=== PATIENT | female | born 1960 | race Caucasian/White ===

== ENCOUNTER 2017-05-12 23:55 | Emergency (ER) | payer OTHER, MEDICARE ==
[2017-05-13] MEDS ORDERED: RX INFO: IV CONTRAST WAS GIVEN 1 EACH MISC MISCELLANE PRN (00:01)
[2017-05-13] MEDS ORDERED: ceFAZolin 1,000 MG in DEXTROSE/WATER 1 50ML.BAG IVPB STA (00:05)
[2017-05-13] MEDS ORDERED: DIPH,PERTUS(ACELL)TETVAC-LF 0.5 ML VIAL IM ONE (00:05)
[2017-05-13] MEDS ORDERED: MORPHINE SULFATE 4 MG/ML SYRINGE IV STA (00:06)
[2017-05-13 00:07] VITALS: BP 139/80; PULSE 95; RESP 28; TEMP 96.8
[2017-05-13 00:10] LABS: Glucose,Whole Blood 112 mg/dL (75-99)
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
[2017-05-13 00:37] LABS: Basophils % (A) 0 %; CH 32.9; CHCM 34.1; Eosinophils # (A) 0.2 k/uL (0-0.7); Eosinophils % (A) 2 %; HDW 2.25; HGB 14.3 gm/dL (11.4-16.0); Luc # (Auto) 0.32; Luc % (Auto) 4; Lymphocytes % (A) 38 %; MCH 35.6 pg (25.0-35.0); MCHC 36.7 g/dL (31.0-37.0); MCV 96.8 fL (80.0-100.0); Mean Platelet Volume 6.4; Monocytes # (A) 0.5 k/uL (0-1.0); Monocytes % (A) 6 %; Neutrophils % (A) 50 %; RBC 4.03 m/uL (3.80-5.40); WBC (Perox) 8.74
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
--- NOTE | 2017-05-13 00:44 | XR ---
Exam: FILM PELVIS INDICATION: Trauma COMPARISON: none FINDINGS: Single AP view of the pelvis is obtained. No fracture or malalignment. Joint spaces are maintained. No arthritic changes identified. Sacroiliac joints and pubic sepsis are intact.. Soft tissues are unremarkable by radiograph exam. IMPRESSION: No fracture or malalignment. Unremarkable exam.
[2017-05-13 00:46] LABS: Anion Gap 13 mmol/L; Calcium 9.4 mg/dL (8.4-10.2); Carbon Dioxide 21 mmol/L (22-30); Chloride 107 mmol/L (98-107); Glucose 95 mg/dL (74-99); Non-African American GFR(MDRD) 58 (>60 ml/min/1.73 sqM); Sodium 141 mmol/L (137-145); Total Bilirubin 0.5 mg/dL (0.2-1.3); Total Protein 6.4 g/dL (6.3-8.2)
[2017-05-13 00:49] LABS: ALT 18 U/L (9-52); AST 28 U/L (14-36); Alcohol 103 mg/dL; Alkaline Phosphatase 46 U/L (38-126); Blood Urea Nitrogen 13 mg/dL (7-17); Potassium 4.1 mmol/L (3.5-5.1)
[2017-05-13] MEDS ORDERED: HYDROmorphone 1 MG/ML 1 ML SYRINGE IVP STA ×4 (00:50→01:32)
[2017-05-13 00:51] LABS: Prothrombin Time 10.5 sec (9.0-12.0)
[2017-05-13 00:56] LABS: Partial Thromboplastin Time 20.7 sec (22.0-30.0)
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
--- NOTE | 2017-05-13 01:07 | CT ---
Exam: CT CHEST With Contrast INDICATION: Trauma TECHNIQUE: Multiple, contiguous 5mm axial cuts of the chest are obtained following the administration of IV contrast. High resolution axial images as well as sagittal and coronal reformatted images are available. This CT exam was performed using one or more of the following dose reduction techniques: automated exposure control, adjustment of the mA and/or kV according to patient size, and/or use of iterative reconstruction technique. CTDI for chest abdomen pelvis 10.6, DLP 719.4 COMPARISON:chest radiograph 05/13/17 FINDINGS: No pneumothorax or effusion or acute infiltrates. Centrilobular emphysematous changes upper lung chatman. No acute osseous normality. Mild endplate degenerative osteophyte formation at a few levels of the lower thoracic spine not unexpected for age. Aorta normal. No dissection. Heart size normal. No pericardial effusion. No adenopathy. 1.8 x 1.1 cm low-density nodule left lobe of the thyroid gland. IMPRESSION: 1. No acute traumatic injury to the chest. 2. Emphysematous changes of the lungs. No infiltrates or effusion or pneumothorax. 3. 1.8 x 1.1 cm low-density nodule left lobe of thyroid gland. EXAM: CT ABDOMEN PELVIS WITH CONTRAST INDICATION: Trauma TECHNIQUE: Multiple, contiguous 5 mm axial cuts of the abdomen and pelvis are obtained from the lung bases to the ischial tuberosities. Intravenous contrast administered. Sagittal and coronal reformatted images are available. This CT exam was performed using one or more of the following dose reduction techniques: automated exposure control, adjustment of the mA and/or kV according to patient size, and/or use of iterative reconstruction technique. CTDI for chest abdomen pelvis 10.6, DLP 719.4 COMPARISON: None FINDINGS: Lung bases are clear. Liver: liver is unremarkable. Spleen: spleen is unremarkable. Pancreas: pancreas is unremarkable. Gallbladder: Gallbladder is unremarkable by CT exam. Adrenal glands: adrenal glands are unremarkable. Kidneys: kidneys are unremarkable. No urinary tract stones or hydronephrosis or perinephric inflammatory changes. GI tract: No bowel obstruction. No free fluid or free air or acute mesenteric inflammatory changes. Appendix: Appendix is not identified however no secondary signs for acute appendicitis is seen. Urinary bladder: urinary bladder is unremarkable. Abdominal aorta: Abdominal aorta normal caliber. Retroperitoneum. No adenopathy. Osseous structures: No acute osseous abnormality. No focal ovarian lesion. IMPRESSION: 1. No solid organ injury. No acute intra-abdominal process or evidence for acute traumatic injury.. 2. No free fluid or free air or bowel obstruction. 3. No acute osseous abnormality.
--- NOTE | 2017-05-13 01:53 | XR ---
ADDENDUM - Added by Jeremy Stallings M.D. on 05/13/2017 1:55 AM (-07:00) Addendum: Please see right tibia-fibula exam report for right fibular neck fracture and distal tibial shaft fracture. Exam: FILM RIGHT FEMUR INDICATION: Trauma COMPARISON: none FINDINGS: 5 views of the right femur are obtained. No fracture or malalignment. Bone mineralization appears within normal limits. Soft tissues are unremarkable radiographically. There is contrast seen in the urinary bladder from CT exam performed prior to this study. No knee joint effusion. IMPRESSION: No fracture or malalignment. Unremarkable exam.
--- NOTE | 2017-05-13 01:55 | XR ---
Exam: FILM RIGHT TIB/FIB INDICATION: Trauma COMPARISON: none FINDINGS: 4 views of the right tibia and fibula are obtained. Acute oblique fracture of the distal tibial shaft with cortical shaft width lateral and posterior displacement without significant angulation. There is an oblique fracture of the fibular neck without significant displacement. Knee joint and mortise joint alignment are maintained. Soft tissues are unremarkable radiographically. IMPRESSION: Acute oblique fracture of the distal tibial shaft with cortical shaft width lateral and posterior displacement without significant angulation. There is an oblique fracture of the fibular neck without significant displacement. Knee joint and mortise joint alignment are maintained.
--- NOTE | 2017-05-13 02:16 | XR ---
EXAM: XR Right Hand Complete, 3 or More Views CLINICAL HISTORY: trauma TECHNIQUE: Frontal, lateral and oblique views of the right hand. COMPARISON: No relevant prior studies available. FINDINGS: Bones/joints: Unremarkable. No acute fracture. No dislocation. Soft tissues: Unremarkable. No radiopaque foreign body. IMPRESSION: No fracture.
== END 2017-05-13 01:40 | disposition short-term general hospital (02) ==
LOC: EC 23:55
DX: S82.231A Displaced oblique fracture of shaft of right tibia, initial encounter for closed fracture (principal); S82.431A Displaced oblique fracture of shaft of right fibula, initial encounter for closed fracture; S82.861A Displaced Maisonneuve's fracture of right leg, initial encounter for closed fracture; S00.81XA Abrasion of other part of head, initial encounter; S60.511A Abrasion of right hand, initial encounter; F10.129 Alcohol abuse with intoxication, unspecified; R00.0 Tachycardia, unspecified; V48.6XXA Car passenger injured in noncollision transport accident in traffic accident, initial encounter; Y92.410 Unspecified street and highway as the place of occurrence of the external cause
CPT/HCPCS: 36415; 93005; 86900; 86901; 80053; 83605; 84484; 85025; 85610; 85730; 86850; 80320; 71010; 72170; 73552; 73130; 73590; 72125; 70450; 71260; 74177; 90715; 99291; 96365; 96375 ×2; 96376; 29515; 90471; J2270; J1170; Q9967; J0690

== ENCOUNTER → 2017-06-01 | Outpatient (CLI) | payer MEDICARE ==
--- NOTE | 2017-06-01 17:38 | US ---
EXAMINATION TYPE: US thyroid st tissue head/neck DATE OF EXAM: 06/01/2017 COMPARISON: CT CLINICAL HISTORY: E04.1 NODULE. Left thyroid nodule seen on recent CT GLAND SIZE: Right Lobe: 5.3 x 1.3 x 1.2 cm Overall Parenchyma: homogenous Left Lobe: 5.1 x 1.9 x 1.4 cm Overall Parenchyma: homogeneous Isthmus Thickness: 0.2 cm NODULES RIGHT: # of nodules measured on right: 1 1. 0.4 X 0.3 x 0.4 cm hypoechoic mixed nodule at the mid pole with well-defined margins. This nodul e is wider than tall and shows intranodular vascularity. Prior size: no previous LEFT: # of nodules measured on left: 1 1. 2.5 X 1.7 x 1.6 cm hypoechoic mixed nodule at the lower pole with well-defined margins. This nod ule is wider than tall and shows intranodular vascularity. Prior size: no previous ISTHMUS: # of nodules measured in the isthmus: 0 Bilateral neck scanned, no evidence of lymphadenopathy. IMPRESSION: Left thyroid nodule measuring 2.5 x 1.7 x 1.6 cm can be further characterized with fine needle aspira tion tissue sampling.
== END | disposition home or self-care (01) ==
LOC: RADUSWWP 16:51
PROVIDERS: ATTEND Family Medicine
DX: E04.1 Nontoxic single thyroid nodule (principal)
CPT/HCPCS: 76536

== ENCOUNTER 2018-05-29 12:19 | Day surgery (SDC) | payer MEDICARE ==
[2018-05-29 12:45] VITALS: RESP 16; TEMP 97.7
[2018-05-29] MEDS ORDERED: ALPRAZolam 0.5 MG TAB PO STA (12:48)
[2018-05-29 14:05] VITALS: BP 122/67; PULSE 76
--- NOTE | 2018-05-29 15:15 | US ---
EXAMINATION TYPE: US FNA thyroid DATE OF EXAM: 05/29/2018 COMPARISON: NONE HISTORY: Thyroid nodule. Maximal barrier technique was utilized. After informed consent, skin overlying the lesion was locali zed with ultrasound and the overlying skin prepped and draped. Ultrasound was utilized using sterile technique. Lidocaine was used for local anesthesia. 6 passes with a 25-gauge needle were made into th e left lower pole nodule and aspirated specimen was submitted to cytology. Following the procedure h emostasis achieved. No immediate complication. The patient discharged in stable condition. IMPRESSION: STATUS POST ULTRASOUND GUIDED FINE NEEDLE ASPIRATION OF THYROID NODULE, PATHOLOGY IS PEND ING. THIS PROCEDURE WAS PERFORMED BY THE UNDERSIGNED.
== END 2018-05-29 14:07 | disposition home or self-care (01) ==
LOC: RADPROMAIN 12:19
PROVIDERS: ATTEND Family Medicine
DX: E04.1 Nontoxic single thyroid nodule (principal)
CPT/HCPCS: 10022; 76942; 88173; 88305

== ENCOUNTER → 2018-12-21 | Outpatient (CLI) | payer MEDICARE ==
--- NOTE | 2018-12-21 15:45 | US ---
EXAMINATION TYPE: US thyroid st tissue head/neck DATE OF EXAM: 12/21/2018 COMPARISON: Prior thyroid ultrasound June 01, 2017 CLINICAL HISTORY: E04.1 thyroid nodule. GLAND SIZE: Right Lobe: 4.9 x 1.3 x 1.6 cm Overall Parenchyma: homogenous Left Lobe: 5.0 x 1.8 x 1.6 cm Overall Parenchyma: homogeneous Isthmus Thickness: 0.3 cm NODULES RIGHT: # of nodules measured on right: 1 1. 0.4 X 0.3 x 0.4 cm hypoechoic solid nodule at the mid pole with well-defined margins. This nodu le is wider than tall and shows no intranodular vascularity. Prior size: 0.4 X 0.3 x 0.4 cm LEFT: # of nodules measured on left: 1 1. 2.2 X 1.4 x 1.3 cm hypoechoic solid nodule at the lower pole with well-defined margins. This no dule is wider than tall and shows intranodular vascularity. Prior size: 2.5 X 1.7 x 1.6cm ISTHMUS: # of nodules measured in the isthmus: 0 Bilateral neck scanned, no evidence of lymphadenopathy. Homogeneous thyroid gland is normal in size on current study with stable 4 mm right thyroid nodule in feriorly stable 2.2 cm hypoechoic solid left-sided thyroid nodule which has been biopsied in the past . No new nodules are evident. IMPRESSION: As above, overall stable findings noted.
== END ==
LOC: RADUSWWP 14:56
PROVIDERS: ATTEND Surgery
DX: E04.1 Nontoxic single thyroid nodule (principal)
CPT/HCPCS: 76536

== ENCOUNTER → 2019-01-18 | Outpatient (CLI) | payer MEDICARE ==
--- NOTE | 2019-01-21 13:17 | MM ---
Reason for exam: screening (asymptomatic). Last mammogram was performed 2 years and 7 months ago. History: Patient is postmenopausal. Family history of premenopausal breast cancer in sister at age 32. Took estrogen for 13 years beginning at age 36. Physical Findings: A clinical breast exam by your physician is recommended on an annual basis and results should be correlated with mammographic findings. MG 3D Screening Mammo W/Cad Bilateral CC and MLO view(s) were taken. Prior study comparison: June 20, 2016, bilateral MG 3d screening mammo w/cad. March 27, 2012, CAD bilateral diagnostic mammogram. The breast tissue is heterogeneously dense. This may lower the sensitivity of mammography. No significant changes when compared with prior studies. ASSESSMENT: Benign, BI-RAD 2 RECOMMENDATION: Routine screening mammogram of both breasts in 1 year.
== END ==
LOC: RADMAMWWP 15:04
PROVIDERS: ATTEND Family Medicine
DX: Z12.31 Encounter for screening mammogram for malignant neoplasm of breast (principal)
CPT/HCPCS: 77063; 77067

== ENCOUNTER → 2021-01-14 | Outpatient (CLI) | payer OTHER ==
--- NOTE | 2021-01-15 08:03 | US ---
EXAMINATION TYPE: US thyroid st tissue head/neck DATE OF EXAM: 01/14/2021 COMPARISON: US 2019, 05/29/2018 CLINICAL HISTORY: E04.1 THYROID NODULE. Thyroid nodule, history of FNA, patient on thyroid meds GLAND SIZE: Right Lobe: 5.3 x 1.2 x 1.4 cm Overall Parenchyma: homogenous Left Lobe: 4.9 x 1.7 x 1.4 cm Overall Parenchyma: homogeneous Isthmus Thickness: 0.2 cm NODULES RIGHT: # of nodules measured on right: 1 1. 0.4 X 0.3 x 0.4 cm lateral mid pole cystic or almost completely cystic, hypoechoic nodule, which is wider than tall, with smooth margins, without echogenic foci. Prior size: 0.4 x 0.2 x 0.3 cm LEFT: # of nodules measured on left: 1 1. 2.3 X 1.3 x 1.4 cm inferior pole solid or almost completely solid, hypoechoic nodule, which is w ider than tall, with smooth margins, without echogenic foci. May have increased vascularity. Prior size: 2.3 x 1.4 x 1.3 cm . This appears to have been biopsied 2018. ISTHMUS: # of nodules measured in the isthmus: 0 Bilateral neck scanned, no evidence of lymphadenopathy. IMPRESSION: Moderately suspicious nodule left lobe thyroid. Continued monitoring is recommended. 2017 ACR TI-RADS LEVEL: TR-RADS 4 - Moderately Suspicious: Follow if > 1 cm, FNA if > 1.5 cm *Highest TI-RADS level nodule reported
== END ==
LOC: RADUSWWP 16:15
PROVIDERS: ATTEND Surgery
DX: E04.1 Nontoxic single thyroid nodule (principal)
CPT/HCPCS: 76536

== ENCOUNTER → 2022-01-31 | Outpatient (CLI) | payer BC ==
--- NOTE | 2022-02-01 08:23 | US ---
EXAMINATION TYPE: US thyroid st tissue head/neck DATE OF EXAM: 01/31/2022 COMPARISON: 01/14/21 CLINICAL HISTORY: 61-year-old female E04.1 THYROID NODULE. Thyroid nodule; hx left thyroid biopsy TECHNIQUE: Multiple sonographic images of the thyroid gland are obtained. FINDINGS: GLAND SIZE: Right Lobe: 5.0 x 1.2 x 1.2 cm Overall Parenchyma: homogenous Left Lobe: 4.8 x 1.5 x 1.3 cm Overall Parenchyma: homogeneous Isthmus Thickness: 0.28 cm NODULES RIGHT: # of nodules measured on right: 1 1. 0.3 X 0.3 x 0.3 cm, lower mid, , hypoechoic nodule, which is wider than tall, with smooth margin s, without echogenic foci. Prior size: 0.4 x 0.3 x 0.4 cm LEFT: # of nodules measured on left: 1 1. 2.4 X 1.7 x 1.6 cm, mid lateral, solid or almost completely solid, hypoechoic TR4 nodule, which is wider than tall, with smooth margins, without echogenic foci. Prior size: 2.3 x 1.3 x 1.4 cm ISTHMUS: # of nodules measured in the isthmus: 0 Bilateral neck scanned, no evidence of lymphadenopathy. IMPRESSION: 1. Borderline hepatomegaly. 2. Solid TR4 nodule at the left lower pole is stable to minimally larger at 2.4 x 1.7 cm (versus 2.3 x 1.4 cm, previously). Continue to follow.
== END | disposition home or self-care (01) ==
LOC: RADUSWWP 16:49
PROVIDERS: ATTEND Surgery
DX: E04.1 Nontoxic single thyroid nodule (principal); R16.0 Hepatomegaly, not elsewhere classified
CPT/HCPCS: 76536

== ENCOUNTER 2022-02-10 08:40 | Day surgery (SDC) | payer BC ==
[2022-02-10] MEDS ORDERED: ALPRAZolam 0.5 MG TAB PO PRN (08:57)
[2022-02-10 09:03] VITALS: TEMP 97.8
--- NOTE | 2022-02-10 10:39 | US ---
ULTRASOUND GUIDED FNA THYROID BIOPSY: CLINICAL HISTORY: Left thyroid nodule FINDINGS: The procedure was explained to the patient. The risks, complications, benefits and alternatives were discussed and any questions were answered. Informed consent was obtained. Patient was placed supin e on the ultrasound table and prepped and draped in the usual sterile fashion. Utilizing a 25 gauge needle, five passes were made into the requested left thyroid nodule. Patient was stable throughout the procedure. Pathology is pending. All elements of maximal barrier technique were utilized. IMPRESSION: 1. Successful ultrasound guided FNA thyroid biopsy.
[2022-02-10 10:59] VITALS: BP 118/69; PULSE 89; RESP 16
== END 2022-02-10 10:28 | disposition home or self-care (01) ==
LOC: RADPROMAIN 08:40
PROVIDERS: ATTEND Surgery
DX: E04.1 Nontoxic single thyroid nodule (principal)
CPT/HCPCS: 10005; 88173; 88305

== ENCOUNTER → 2022-04-01 | Outpatient (CLI) | payer BC ==
--- NOTE | 2022-04-01 15:19 | CT ---
EXAMINATION TYPE: CT sinus wo con DATE OF EXAM: 04/01/2022 COMPARISON: None HISTORY: chronic sinusitis CT DLP: 500.10 mGycm. Automated Exposure Control for Dose Reduction was Utilized. TECHNIQUE: CT scan of the sinuses is performed without contrast, axial images are obtained, coronal r eformatted images are also reviewed. FINDINGS: The paranasal sinuses including the frontal, ethmoid, sphenoid, and maxillary sinuses bila terally are well-aerated without abnormal opacification. 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 The ostiomeatal complex is patent bilaterally on the coronal images. Visualized portion of mastoid air cells and middle ear cavities show no abnormal opacification. The globes are intact bilaterally. IMPRESSION: The sinuses are clear and the ostiomeatal complex is patent bilaterally.
== END | disposition home or self-care (01) ==
LOC: RADCTMAIN 14:33
PROVIDERS: ATTEND Otolaryngology
DX: J32.9 Chronic sinusitis, unspecified (principal)
CPT/HCPCS: 70486

== ENCOUNTER → 2023-02-23 | Outpatient (CLI) | payer MEDICARE ==
--- NOTE | 2023-02-24 08:06 | MM ---
Reason for Exam: Screening (asymptomatic). Last mammogram was performed 4 year(s) and 1 month(s) ago. Patient History: Menarche at age 13. First Full-Term at age 22. Left ovary removed at age 36. Right ovary removed at age 44. Hysterectomy at age 36. Postmenopausal. Estrogen for 13 years from age 36 until age 49. Sister had breast cancer, age 32. Risk Values: Marguerite 5 year model risk: 2.9%. NCI Lifetime model risk: 12.8%. Prior Study Comparison: 03/27/2012 Bilateral Diagnostic Mammogram, [facility]. 06/20/2016 Bilateral Screening Mammogram, [facility]. 01/18/2019 Bilateral Screening Mammogram, [facility]. Tissue Density: The breast tissue is heterogeneously dense. This may lower the sensitivity of mammography. Findings: Analyzed By CAD. There are a few scattered tiny benign-appearing round calcifications bilaterally redemonstrated. There is no suspicious new group of microcalcifications or new suspicious mass in either breast. Overall Assessment: Benign, BI-RAD 2 Management: Screening Mammogram of both breasts in 1 year. A clinical breast exam by your physician is recommended on an annual basis and results should be correlated with mammographic findings. Electronically signed and approved by: Renan Armijo M.D.
== END | disposition home or self-care (01) ==
LOC: RADMAMWWP 16:31
PROVIDERS: ATTEND Obstetrics & Gynecology
DX: Z12.31 Encounter for screening mammogram for malignant neoplasm of breast (principal); Z78.0 Asymptomatic menopausal state; Z80.3 Family history of malignant neoplasm of breast
CPT/HCPCS: 77063; 77067

== ENCOUNTER → 2023-10-02 | Outpatient (CLI) | payer MEDICARE ==
[2023-10-03 05:15] LABS: C Reactive Protein <0.30 mg/dL (0.00-0.80); Estradiol 64.8 pg/mL
== END | disposition home or self-care (01) ==
LOC: LABWHC1 13:33
PROVIDERS: ATTEND Family Medicine
DX: R53.83 Other fatigue (principal); Z79.890 Hormone replacement therapy
CPT/HCPCS: 36415; 82533; 82626; 82670; 84144; 84403; 86140

== ENCOUNTER → 2023-11-02 | Outpatient (CLI) | payer MEDICARE ==
[2023-11-02 11:55] LABS: Magnesium 1.9 mg/dL (1.5-2.4); T4, Free (Free Thyroxine) 1.4 ng/dL (0.80-1.80)
== END | disposition home or self-care (01) ==
LOC: LABWHC1 07:32
PROVIDERS: ATTEND Family Medicine
DX: M81.0 Age-related osteoporosis without current pathological fracture (principal); E63.9 Nutritional deficiency, unspecified; E07.9 Disorder of thyroid, unspecified; R41.9 Unspecified symptoms and signs involving cognitive functions and awareness; R53.83 Other fatigue
CPT/HCPCS: 36415; 82533; 82607; 83735; 84140; 84207; 84425; 84439; 84443; 84481; 84591; 86376

== ENCOUNTER → 2024-01-08 | Outpatient (CLI) | payer MEDICARE ==
[2024-01-17 22:41] LABS: Albumin, LC/MS/MS 4.2 g/dL (3.6-5.1); Testosterone, Free, LC/MS/MS 14.1 pg/mL (0.2-5.0)
== END | disposition home or self-care (01) ==
LOC: LABWHC1 10:58
PROVIDERS: ATTEND Family Medicine
DX: R79.89 Other specified abnormal findings of blood chemistry (principal); Z79.890 Hormone replacement therapy
CPT/HCPCS: 36415; 82040; 82670; 84270; 84403

== ENCOUNTER → 2024-02-26 | Outpatient (CLI) | payer MEDICARE ==
--- NOTE | 2024-02-28 14:52 | MM ---
Reason for Exam: Screening (asymptomatic). Last screening mammogram was performed 12 month(s) ago. Patient History: Menarche at age 13. First Full-Term at age 22. Left ovary removed at age 36. Right ovary removed at age 44. Hysterectomy at age 36. Postmenopausal. Estrogen for 13 years from age 36 until age 49. Sister had breast cancer, age 32. Risk Values: Marguerite 5 year model risk: 3.0%. NCI Lifetime model risk: 12.4%. Prior Study Comparison: 06/20/2016 Bilateral Screening Mammogram, [facility]. 01/18/2019 Bilateral Screening Mammogram, [facility]. 02/23/2023 Bilateral MG 3D screening mammo w/cad, [facility]. Tissue Density: The breasts are heterogeneously dense, which may obscure small masses. Findings: Analyzed By CAD. There is no suspicious group of microcalcifications or new suspicious mass in either breast. Overall Assessment: Benign, BI-RAD 2 Management: Screening Mammogram of both breasts in 1 year. . Patient should continue monthly self-breast exams. A clinical breast exam by your physician is recommended on an annual basis. This exam should not preclude additional follow-up of suspicious palpable abnormalities. Note on Marguerite scores and lifetime risk: 1. A Marguerite score greater than 3% is considered moderate risk. If this is the case, consider specialist referral to assess eligibility for a risk reducing agent. 2. If overall lifetime risk for the development of breast cancer is 20% or higher, the patient may qualify for future screening with alternating mammogram and breast MRI. Electronically signed and approved by: Cholo Hayes M.D. Radiologis
== END | disposition home or self-care (01) ==
LOC: RADMAMWWP 16:22
PROVIDERS: ATTEND Family Medicine
DX: Z12.31 Encounter for screening mammogram for malignant neoplasm of breast (principal); Z78.0 Asymptomatic menopausal state; Z80.3 Family history of malignant neoplasm of breast
CPT/HCPCS: 77063; 77067

== ENCOUNTER → 2025-03-06 | Outpatient (CLI) | payer MEDICARE ==
--- NOTE | 2025-03-06 14:15 | CTL ---
EXAMINATION TYPE: CT Low Dose Lung DATE OF EXAM ORDERED: 03/06/2025 COMPARISON: CT chest, abdomen and pelvis dated 05/13/2017 CLINICAL INDICATION: Female, 64 years old with history of Z12.2 LUNG CA SCR F17.210 CURRENT SMOKER; [facility], Current smoker, 1 ppd x 50 years, Lung cancer screening, History of Smoking/tobacco use. TECHNIQUE: Low dose computed tomography scan was performed through the chest at 1 mm thick sections a nd reconstructed images in multiple planes at 1 mm and [address] DLP: 46.[address] CTDI: 1.4 mGy Automated exposure control for dose reduction was used. CT DIAGNOSTIC QUALITY: Satisfactory EXAMINATION TYPE: CT Low Dose Lung DATE OF EXAM ORDERED: 03/06/2025 CLINICAL INDICATION: Female, 64 years old with history of Z12.2 LUNG CA SCR F17.210 CURRENT SMOKER, history of tobacco use, Lung cancer screening CT DLP: 46.[address] CTDI: 1.4 mGy Automated exposure control for dose reduction was used. Comparison: None TECHNIQUE: Low dose computed tomography scan was performed through the chest at 1 mm thick sections a nd reconstructed images in multiple planes at 1 mm and [address] DIAGNOSTIC QUALITY: Satisfactory FINDINGS: There are moderate diffuse emphysematous changes. There is a 16 - 17 mm left thyroid nodule thyroid u ltrasound is recommended to exclude malignancy. There are 2 to 3 mm right upper lobe nodules not clearly seen on the prior study. There is no airspace consolidation or abnormal interstitial density. There is no mediastinal, hilar or axillary adenopathy. There is no pleural effusion, pleural thickening or pneumothorax. No focal osseous lesions are seen. Limited scans the upper abdomen reveals no gross abnormality IMPRESSION: 1. Lung rads Category 3, likely benign. 2. New 2 to 3 mm right upper lobe nodules. Follow-up CT thorax in 3 months is recommended to confirm stability. 3. No acute cardiopulmonary disease. 4. To exclude malignancy. Moderate emphysematous changes. 5. 16 -17 mm left thyroid nodule and thyroid ultrasound is recommended [facility], , 03/06/2025 2:13 PM
== END | disposition home or self-care (01) ==
LOC: RADCTMAIN 13:28
PROVIDERS: ATTEND Family Medicine
DX: Z12.2 Encounter for screening for malignant neoplasm of respiratory organs (principal); F17.210 Nicotine dependence, cigarettes, uncomplicated; R91.8 Other nonspecific abnormal finding of lung field; E04.1 Nontoxic single thyroid nodule
CPT/HCPCS: 71271

== ENCOUNTER 2025-03-19 10:30 | Day surgery (SDC) | payer MEDICARE ==
[2025-03-19] MEDS: IV FLUID CONTINUATION 1,000 ML IV ONE (11:15)
[2025-03-19] MEDS: ONDANSETRON 4 MG/2 ML VIAL IVP STA (11:34)
[2025-03-19] MEDS: DEXAMETHASONE SOD PHOSPHATE 4 MG/ML 1 ML VIAL IVP STA (11:34)
[2025-03-19] MEDS: MIDAZOLAM 2 MG/2 ML VIAL IV ONE (11:42)
[2025-03-19] MEDS ORDERED: KETOROLAC 15 MG/ML 1 ML VIAL ONE (12:23)
[2025-03-19] MEDS ORDERED: LIDOCAINE 1% INJ 10MG/ML (20 ML MDV) ONE (12:23)
[2025-03-19] MEDS ORDERED: PHENYLEPHRINE 10 MG/ML VIAL ONE (12:23)
[2025-03-19] MEDS ORDERED: MIDAZOLAM 2 MG/2 ML VIAL ONE (12:23)
[2025-03-19] MEDS ORDERED: fentaNYL (PF) 50 MCG/ML 2 ML AMP ONE (12:23)
[2025-03-19] MEDS ORDERED: PROPOFOL 10 MG/ML 20 ML VIAL IV ONE (12:23)
[2025-03-19] MEDS: ceFAZolin 2 GM in DEXTROSE 5% IN WATER 50 ML IVPB PRN (12:27)
[2025-03-19] MEDS ORDERED: METOCLOPRAMIDE 5 MG/ML 2 ML VIAL IVP PRN (13:11)
[2025-03-19] MEDS ORDERED: ONDANSETRON 4 MG/2 ML VIAL IVP PRN (13:11)
[2025-03-19] MEDS ORDERED: HYDROmorphone 1 MG/ML 1 ML SYRINGE IVP PRN (13:11)
[2025-03-19] MEDS ORDERED: HYDROmorphone 0.5 MG/0.5 ML SYRINGE IVP PRN (13:11)
[2025-03-19] MEDS ORDERED: HYDROcodone/APAP 5-325MG 1 EACH TAB PO PRN ×2 (13:11)
--- NOTE | 2025-03-19 13:11 | P.OP ---
Date of Procedure: 03/19/25 Preoperative Diagnosis: 1. Symptomatic hardware right leg 2. Prior distal third tibia fracture status post intramedullary nail Postoperative Diagnosis: Same Procedure(s) Performed: Hardware removal deep, right leg Anesthesia: MONCHO WILKINS Surgeon: Lucas Giles Canal Equipment Maintenance Supervisor #1: Joseph Sabillon Estimated Blood Loss (ml): 10 IV fluids (ml): 200 Pathology: none sent Condition: stable Disposition: PACU Indications for Procedure: The patient is a very pleasant 64-year-old female who I recently saw in the office regarding symptomatic hardware in her right leg. The patient previously sustained a closed right distal third tibia fracture and underwent intramedullary nailing at a different facility. She went on to heal her fracture but presented to my office with symptomatic hardware from the interlocking screws proximally and distally at the nail. She requested hardware removal. On exam she was only symptomatic over the very prominent screw heads of the interlocking screws proximally and distally. She had minimal to no anterior knee pain. We discussed removing the prominent screws versus entire tibial nail removal. Her x-rays showed that the nail was countersunk and bone had overgrown the proximal aspect of the tibial nail. Both the patient and her were aware of this. My recommendation was to only remove the symptomatic screws as this was what was bothering her. The patient and her agreed. We discussed the potential risks and complications of surgery including but not limited to risk of anesthesia, superficial infection, deep infection, damage to blood vessels or nerves, delayed wound healing, continued symptoms, DVT, PE, need for further hardware removal, to satisfaction with surgery, and possibly loss of life or limb. They provided their consent to go forward with surgery. Description of Procedure: The patient was identified in preoperative holding and the correct right leg was marked with my initials. I reviewed the consent form with the patient and her . All of their questions were answered. The patient was then brought back to operating room by anesthesia. She was positioned on the OR table where general anesthetic and preoperative antibiotics were given. A tourniquet was applied to the proximal aspect of the right leg but was not used during the procedure. A bump was placed under the right leg to facilitate intraoperative imaging. The contralateral left leg was secured to the OR table with foam, a blue towel, and tape. Nonsterile drapes were applied. The right leg was then prepped and draped in the standard sterile fashion. Prior to starting surgery a timeout was performed identifying the correct patient, operative extremity, and procedure. I began by removing the proximal screw. A stab incision was made over the prominent screw head at the site of the previous scar. Dissection was bluntly performed down to the screw. With the screw head fully visualized a star escort car driver was used to completely remove the screw. Attention was then turned distally. There were 2 prominent screw heads. Stab incisions were made and dissection was carried down to both prominent screw heads which were easily removed with the appropriate sized star head screwdriver. There was still 1 distal interlocking screw which was not readily palpable. Final fluoroscopic images were taken. All 3 wounds were thoroughly irrigated and closed in layers. Half percent Marcaine was injected around the incision sites. Sterile dressings were applied. The drapes were taken down and an Fausto wrap was applied. The patient was then extubated, transferred to a gurredfield, and brought to recovery having tolerated the suture well. Joseph Sabillon PA-C was required as a skilled assistant producer due to the complexity of surgery for positioning, retraction, closure of wound, and application of dressing. Plan: The patient can discharge home as an outpatient. She is to weight-bear as tolerated in a boot. DVT prophylaxis with aspirin for 2 weeks. Pain medications and a stool softener was sent to the pharmacy. She will need follow-up in the office in 2 weeks for wound check. She does not need x-rays at that time.
[2025-03-19] MEDS ORDERED: LACTATED RINGERS 1,000 ML IV SCH (13:15)
[2025-03-19] MEDS: BUPIVACAINE (PF) 0.25% 30 ML VIAL SQ ONE ×2 (13:16)
[2025-03-19] MEDS: LACTATED RINGERS 1,000 ML IV ONE (13:17)
--- NOTE | 2025-03-19 13:19 | XR ---
Fluoroscopy History: Hardware removal SCREW REMOVAL IRRITATING HARDWARE, 8 SEC FLUORO, DAP .0869 Gycm2 [facility], , 03/19/2025 1:17 PM
[2025-03-19 13:40] VITALS: TEMP 97.1
[2025-03-19] MEDS: HYDROmorphone 0.5 MG/0.5 ML SYRINGE IVP PRN (13:51)
[2025-03-19] MEDS: ACETAMINOPHEN IV (For NPO) 1,000 MG in EMPTY BAG 1 BAG IVPB STA (14:22)
[2025-03-19 14:33] VITALS: RESP 18
[2025-03-19 15:29] VITALS: BP 102/58; PULSE 64
== END 2025-03-19 15:30 | disposition home or self-care (01) ==
LOC: OR 10:30
PROVIDERS: ATTEND Orthopaedic Surgery
DX: T84.84XA Pain due to internal orthopedic prosthetic devices, implants and grafts, initial encounter (principal); M79.7 Fibromyalgia; E03.9 Hypothyroidism, unspecified; M85.80 Other specified disorders of bone density and structure, unspecified site; K21.9 Gastro-esophageal reflux disease without esophagitis; G43.909 Migraine, unspecified, not intractable, without status migrainosus; F90.9 Attention-deficit hyperactivity disorder, unspecified type; F17.290 Nicotine dependence, other tobacco product, uncomplicated; Z79.890 Hormone replacement therapy; Z79.899 Other long term (current) drug therapy; Z87.81 Personal history of (healed) traumatic fracture
CPT/HCPCS: 20680; 73590; J2250; J1100; J0690; J2405; J2003; J3010; J0131; J1885; J2704; J1171; J2371; J0665